=== PATIENT | female | born 1960 | race Caucasian/White ===

== ENCOUNTER 2016-08-26 09:17 | Emergency (ER) | payer OTHER ==
[~2016-08-26] VITALS: Ht 165.1 cm; Wt 78.9 kg
[~2016-08-26 09:17] MED LIST: CEPH-443 PO; FAMO40TA52 PO; MAG355OR15 PO; ONDA4TAB14 PO; OXYC-279 PO
[2016-08-26 09:29] VITALS: Ht 165.1 cm; Wt 78.9 kg
[2016-08-26] MEDS ORDERED: ONDANSETRON 4 MG INJ IV STA (12:56)
[2016-08-26] MEDS ORDERED: HYDROmorphONE 1 MG/ML SYG IV STA (12:56)
[2016-08-26] MEDS ORDERED: SOD CHLORIDE 0.9% 1,000 ML IV STA (12:56)
[2016-08-26 13:20] LABS: ADD SCAN DIFF NO
[2016-08-26 13:24] LABS: BASOPHILS % 0.3 % (0.0-2.0); EOSINOPHILS # 0.3 10^3/ul (0.0-0.5); EOSINOPHILS % 4.6 % (0.0-7.0); HEMOGLOBIN 13.7 g/dl (12.0-16.0); LYMPHOCYTES # 2.2 10^3/ul (0.8-2.9); LYMPHOCYTES % 36.7 % (15.0-51.0); MEAN CORPUSCULAR HEMOGLOBIN 29.1 pg (29.0-33.0); MEAN CORPUSCULAR HGB CONC 33.4 g/dl (32.0-37.0); MEAN PLATELET VOLUME 10.6 fl (7.4-10.4); MONOCYTE # 0.9 10^3/ul (0.3-0.9); MONOCYTES % 13.9 % (0.0-11.0); NEUTROPHIL # 2.7 10^3/ul (1.6-7.5); NEUTROPHILS % 44.3 % (39.0-77.0); PLATELET COUNT 250 10^3/UL (140-415); RED BLOOD COUNT 4.71 10^6/ul (4.20-5.40); RED CELL DISTRIBUTION WIDTH 14.1 % (11.5-14.5); WHITE BLOOD COUNT 6.1 10^3/ul (4.8-10.8)
[2016-08-26 13:37] LABS: ALBUMIN 4.3 g/dl (3.3-4.9); POTASSIUM 4.2 mmol/L (3.5-5.1)
[2016-08-26 13:39] LABS: CREATININE 0.84 mg/dl (0.44-1.00)
[2016-08-26 13:40] LABS: ALBUMIN/GLOBULIN RATIO 1.19; BILIRUBIN,INDIRECT 0.3 mg/dl (0-1.1); BILIRUBIN,TOTAL 0.3 mg/dl (0.2-1.3); CALCIUM 9.2 mg/dl (8.4-10.2); TOTAL PROTEIN 7.9 g/dl (6.1-8.1)
--- NOTE | 2016-08-26 16:21 | RADRPT ---
PROCEDURE: US Abdomen (right upper quadrant). CLINICAL INDICATION: Right upper quadrant abdomen pain. TECHNIQUE: Multiple real-time longitudinal and transverse images of the right upper quadrant of th e abdomen were acquired utilizing a curved array transducer. Images were reviewed on a high-resoluti on PACS workstation. COMPARISON: None FINDINGS: The liver is normal in size and echogenicity. There is no focal hepatic lesion. There is shadowing at the expected location of the gallbladder which may be due to calcification in the wall of the gallbladder or multiple gallstones. There is no gallbladder wall thickening and the re is no fluid around the gallbladder. The bile ducts are dilated with the common bile duct measuring 11.8 mm in diameter. The visualized portions of the pancreas are unremarkable with obscuration of the tail of the pancrea s. No free fluid is present. The right kidney measures 10.9 cm. There is normal echogenicity of the right kidney. There is no perinephric fluid collection. No hydronephrosis, mass, or calculus is seen. IMPRESSION: 1. Shadowing at the site of the gallbladder which may be due to calcification in the wall of the ga llbladder or multiple gallstones. Correlation with CT scan advised. 2. Dilated common bile duct measuring 11.8 mm. Correlation with MRCP should be considered. 3. Otherwise unremarkable study. RPTAT: QQ .Diego Schafer MD, Date Time Electronically viewed and signed by .Diego Schafer MD, on 08/26/2016 16:21 .R/
[2016-08-26] MEDS ORDERED: HYDR-902 PO (16:58)
[2016-08-26] MEDS ORDERED: DICY10CA60 PO (16:58)
--- NOTE | 2016-08-26 17:01 | ERD ---
ER Documentation Chief Complaint Date/Time DATE: 08/26/16 TIME: 16:58 Chief Complaint ap with diarrhea HPI This 56-year-old female with a known history of gallstones is complaining of epigastric pain with nausea vomiting diarrhea yesterday. She says today the vomiting and diarrhea have stopped and she does still has some epigastric tenderness and pain described as constant cramping worse after eating. She says this is similar with her prior gallbladder attacks. She has no fever. No chest pain or shortness of breath. No radiation to the back or lower abdomen ROS All systems reviewed and are negative except as per history of present illness. Medications Home Meds Active Scripts Hydrocodone/Acetaminophen ([place] 10-325 Tablet) 1 Each Tablet, 1 TAB PO Q6H Y for PAIN, #20 TAB Prov:SANDEEP CASTELLANOS DO 08/26/16 Dicyclomine Hcl* (Bentyl*) 10 Mg Capsule, 10 MG PO QID, #30 CAP Prov:SANDEEP CASTELLANOS DO 08/26/16 Discontinued Scripts Oxycodone HCl/Acetaminophen (Percocet 5-325 mg Tablet) 1 Each Tablet, 1 EACH PO TID for PAIN, #12 TAB Prov:FELIPE CAMPUZANO MD 02/12/16 Ondansetron (Ondansetron Odt) 4 Mg Tab.rapdis, 4 MG PO Q6H Y for NAUSEA AND/OR VOMITING, #20 TAB Prov:FELIPE CAMPUZANO MD 02/12/16 Famotidine* (Famotidine*) 40 Mg Tablet, 40 MG PO HS, #30 TAB Prov:FELIPE CAMPUZANO MD 02/12/16 Mag Hydrox/Al Hydrox/Simeth (Maalox Plus X-Strength Susp) 355 Ml Oral.susp, 3 TSP PO TID for PAIN, #24 OZ Prov:FELIPE CAMPUZANO MD 02/12/16 Cephalexin* (Keflex*) 500 Mg Capsule, 500 MG PO QID for 5 Days, CAP Prov:FELIPE CAMPUZANO MD 02/12/16 Allergies Allergies: Coded Allergies: No Known Allergy (Unverified , 08/26/16) PMhx/Soc History of Surgery: No Anesthesia Reaction: No Hx Neurological Disorder: No Hx Respiratory Disorders: No Hx Cardiac Disorders: No Hx Psychiatric Problems: No Hx Miscellaneous Medical Probl: Yes (GALLSTONES) Hx Alcohol Use: No Hx Substance Use: No Hx Tobacco Use: No Smoking Status: Never smoker FmHx Family History: No coronary disease Physical Exam Vitals Vital Signs Date Time Temp Pulse Resp B/P Pulse Ox O2 Delivery O2 Flow Rate FiO2 08/26/16 13:20 98.2 72 18 162/80 99 Room Air 08/26/16 09:29 98.1 83 18 136/65 99 Physical Exam Const: Well-developed, well-nourished Head: Atraumatic, normocephalic Eyes: Normal Conjunctiva, PERRLA, EOMI, normal sclera, no nystagmus ENT: Normal External Ears, Nose and Mouth, moist mucus membranes. Neck: Full range of motion. No meningismus, no lymphadenopathy. Resp: Clear to auscultation bilaterally, no wheezing, rhonchi, rales Cardio: Regular rate and rhythm, no murmurs, S1 S2 present Abd: Soft, very mild epigastric tenderness, non distended. Normal bowel sounds, no guarding or rebound, no pulsitile abdominal masses or bruits Skin: No petechiae or rashes, no ecchymosis , no maculopapular rash Back: No midline or flank tenderness Ext: No cyanosis, or edema, FROM x 4, normal inspection, neurovascularly intact x 4 Neur: Awake and alert, STR 5/5 x 4, sensation intact x 4, no focal findings, cerebellum intact Psych: Normal Mood and Affect Result Diagram: 08/26/16 1310 08/26/16 1310 Results 24 hrs Laboratory Tests Test 08/26/16 13:10 Alanine Aminotransferase (ALT/SGPT) 60IU/L Albumin 4.3g/dl Albumin/Globulin Ratio 1.19 Alkaline Phosphatase 128IU/L Anion Gap 18 Aspartate Amino Transf (AST/SGOT) 56IU/L Basophils # 0.010^3/ul Basophils % 0.3% Blood Urea Nitrogen 13mg/dl Calcium Level 9.2mg/dl Carbon Dioxide Level 28mmol/L Chloride Level 100mmol/L Creatinine 0.84mg/dl Direct Bilirubin 0.00mg/dl Eosinophils # 0.310^3/ul Eosinophils % 4.6% Globulin 3.60g/dl Glucose Level 87mg/dl Hematocrit 41.0% Hemoglobin 13.7g/dl Indirect Bilirubin 0.3mg/dl Lipase 110U/L Lymphocytes # 2.210^3/ul Lymphocytes % 36.7% Mean Corpuscular Hemoglobin 29.1pg Mean Corpuscular Hemoglobin Concent 33.4g/dl Mean Corpuscular Volume 87.0fl Mean Platelet Volume 10.6fl Monocytes # 0.910^3/ul Monocytes % 13.9% Neutrophils # 2.710^3/ul Neutrophils % 44.3% Nucleated Red Blood Cells # 0.010^3/ul Nucleated Red Blood Cells % 0.0/100WBC Platelet Count 19225^3/UL Potassium Level 4.2mmol/L Red Blood Count 4.7110^6/ul Red Cell Distribution Width 14.1% Sodium Level 142mmol/L Total Bilirubin 0.3mg/dl Total Protein 7.9g/dl White Blood Count 6.110^3/ul Current Medications Medications (Trade) Dose Ordered Sig/Rashad Route PRN Reason Start Time Stop Time Status Last Admin Dose Admin Sodium Chloride (NS) 1,000 ml @ 1,000 mls/hr Q1H STAT IV 08/26/16 12:56 08/26/16 13:55 DC 08/26/16 13:17 Hydromorphone HCl (Dilaudid) 1 mg ONCE STAT IV 08/26/16 12:56 08/26/16 12:57 DC 08/26/16 13:17 Ondansetron HCl (Zofran Inj) 4 mg ONCE STAT IV 08/26/16 12:56 08/26/16 12:57 DC 08/26/16 13:16 Procedures/MDM PROCEDURE: US Abdomen (right upper quadrant). CLINICAL INDICATION: Right upper quadrant abdomen pain. TECHNIQUE: Multiple real-time longitudinal and transverse images of the right upper quadrant of the abdomen were acquired utilizing a curved array transducer. Images were reviewed on a high-resolution PACS workstation. COMPARISON: None FINDINGS: The liver is normal in size and echogenicity. There is no focal hepatic lesion. There is shadowing at the expected location of the gallbladder which may be due to calcification in the wall of the gallbladder or multiple gallstones. There is no gallbladder wall thickening and there is no fluid around the gallbladder. The bile ducts are dilated with the common bile duct measuring 11.8 mm in diameter. The visualized portions of the pancreas are unremarkable with obscuration of the tail of the pancreas. No free fluid is present. The right kidney measures 10.9 cm. There is normal echogenicity of the right kidney. There is no perinephric fluid collection. No hydronephrosis, mass, or calculus is seen. IMPRESSION: 1. Shadowing at the site of the gallbladder which may be due to calcification in the wall of the gallbladder or multiple gallstones. Correlation with CT scan advised. 2. Dilated common bile duct measuring 11.8 mm. Correlation with MRCP should be considered. 3. Otherwise unremarkable study. RPTAT: QQ .Diego Schafer MD, MD Date Time Electronically viewed and signed by .Diego Schafer MD, on 08/26/2016 16:21 .R/ CC: SANDEEP CASTELLANOS DO Patient is pain-free now. Patient has a dilated common bile duct of 11.8. This could be acute or could be chronic. Her liver function tests are normal except a mild elevation of AST at 56. Bilirubin is normal. Do not feel she has cholecystitis and unlikely has choledocholithiasis but cannot rule aside entirely. I will discharge her home and told her to return if she gets any worse. We will cover with [place] and Bentyl and low-fat diet. White blood count is normal at 6.1. Departure Diagnosis: Primary Impression: Gallstones Condition: Stable Patient Instructions: Gallstones Referrals: LELE CONNER MD, APOSTOLOS A. DO Aug 26, 2016 17:01
[2016-08-26 17:25] VITALS: BP 116/62; PULSE 74; RESP 18; TEMP 98.2
== END 2016-08-26 17:25 | disposition home or self-care (01) ==
LOC: E/R 09:17
DX: K80.21 Calculus of gallbladder without cholecystitis with obstruction (principal); J45.909 Unspecified asthma, uncomplicated; R11.2 Nausea with vomiting, unspecified
CPT/HCPCS: 36415; 76705; 80053; 83690; 85025; 96374; 96375; J1170; J2405; J7030; Z7502